=== PATIENT | male | born 1975 | race Caucasian/White ===

== ENCOUNTER 2024-09-29 14:28 | Emergency (ER) | payer BC, OTHER, SELFPAY ==
--- NOTE | ~2024-09-29 | XR_ITS ---
EXAMINATION: XR chest 2V 09/29/2024 14:56 INDICATION: Cough PROCEDURE: 2 view chest COMPARISON: No prior studies for comparison. FINDINGS: The lungs are clear. The cardiomediastinal silhouette is within normal limits. There are no pleural effusions. There is no pneumothorax suspected. IMPRESSION: 1: NO ACUTE CARDIOPULMONARY DISEASE. Reviewed, dictated and finalized at location A.
--- NOTE | 2024-09-29 14:31 | ED_ITS ---
HPI - URI/Sore Throat General Chief Complaint: Unspecified Stated Complaint: cough Time Seen by Provider: 09/29/24 14:31 Source: patient Mode of arrival: ambulatory Limitations: no limitations History of Present Illness HPI Narrative: Khurram is a 49-year-old male patient presenting to the clinic today with complaints cough x2 weeks. He reports he has a history of acid reflux and had a exacerbation of his acid reflux couple weeks ago. After the exacerbation of his reflux he developed a cough. States he has coughed up some bright red blood at time-last time was on Sunday of last week. Has been having to sit upright and sleep upright at nighttime to help alleviate his symptoms. Denies any shortness of breath or chest pain. Denies any abdominal pain at this time. Has contacted his GI specialist and they are going to be scheduling him a EGD. History of Calles's esophagus. GI specialist recommend going and getting a chest x-ray completed. Denies any runny nose or sore throat. Denies any blood in stool or any coffee-ground emesis. Denies any fevers, chills, body aches, fatigue, or recent weight loss. Related Data Home Medications ?Medication ?Instructions ?Recorded ?Confirmed ?Last Taken ?Type esomeprazole magnesium 20 mg 20 mg PO DAILY 09/29/24 09/29/24 Unknown History capsule,delayed release ([employer] (esomeprazole)) Allergies Allergy/AdvReac Type Severity Reaction Status Date / Time ZEGRID Allergy Mild Uncoded 02/15/10 11:36 Review of Systems Review of Systems: Pertinent positives per HPI. Patient denies any fever, chills, rash, headache, visual changes, dizziness, runny nose, sore throat, shortness of breath, chest pain, palpitations, nausea, vomiting, diarrhea, constipation, abdominal pain, or any urinary issues. PMFSH Comments At the time of my signature, I reviewed and agree with the nursing past medical, surgical, social, and family history. There is no relevant family history perti nent to the patient complaint. Exam Narrative: General: Well-developed, well nourished, in no apparent distress Head: Normocephalic, atraumatic Eyes: Pupils equally round and reactive to light bilaterally, EOM intact, sclera and conjunctive clear, no discharge, lids normal Ears: TMs intact and clear, ear canals clear, no drainage, grossly hearing normal. Nose: Nares patent, no discharge, no inflammation, no sinus tenderness. Mouth: Oropharynx without lesions or masses, good dentition, MMM. Neck: Supple, trachea midline, no enlargement of anterior or posterior cervical nodes, no thyroid masses or goiter palpable. Cardio: Regular rate and rhythm, s1 and s2 normal, no murmur appreciated. Resp: Clear to auscultation bilaterally anteriorly and posteriorly, no rhonchi, rales, wheezing or rubs Abdomen: Soft, pliable, bowel sounds present in all quadrants, non-tender to palpation, no organomegly, no CVAT tenderness. Course Course Emergency Course: Portions of this record may have been created with voice recognition software. Level of Care: Express Care Visit Vital Signs Vital signs: Vital Signs Temperature 36.9 C 09/29/24 14:42 Pulse Rate 73 09/29/24 14:42 Respiratory Rate 18 09/29/24 14:42 Blood Pressure 151/79 H 09/29/24 14:42 Pulse Oximetry 98 09/29/24 14:42 Oxygen Delivery Room Air 09/29/24 14:42 Temperature 36.9 C 09/29/24 14:42 Pulse Rate 73 09/29/24 14:42 Respiratory Rate 18 09/29/24 14:42 Blood Pressure 151/79 H 09/29/24 14:42 Pulse Oximetry 98 09/29/24 14:42 Oxygen Delivery Room Air 09/29/24 14:42 Vital signs reviewed MDM - URI/Sore Throat MDM Narrative Medical decision making narrative: At the time of visit patient is resting comfortably on the exam table. Patient appears to be nontoxic. Complaints cough x2 weeks. He reports he has a history of acid reflux and had a exacerbation of his acid reflux couple weeks ago. After the exacerbation of his reflux he developed a cough. States he has coughed up some bright red blood at time-last time was on Sunday of last week. Has been having to sit upright and sleep upright at nighttime to help alleviate his symptoms. Denies any shortness of breath or chest pain. Denies any abdominal pain at this time. Has contacted his GI specialist and they are going to be scheduling him a EGD. History of Calles's esophagus. GI specialist recommend going and getting a chest x-ray completed. Denies any runny nose or sore throat. Denies any blood in stool or any coffee-ground emesis. Denies any fevers, chills, body aches, fatigue, or recent weight loss. Chest x-ray ordered. Diagnostics: Chest x-rays negative for any acute cardiopulmonary process. Plan: I suspect patient has GERD with likely an esophagitis. Prescription for pantoprazole was sent to pharmacy. Will have patient hold taken his Nexium. Supportive measures were discussed with the patient and they voiced understandin g discharge instructions and agrees to treatment plan. Return precautions reviewed Differential Diagnosis Differential diagnosis: Likely upper respiratory infection, sinusitis, viral infection, bronchitis and other (Pneumonia, hiatal hernia, peptic ulcer disease, GERD) Imaging Data Radiologist's impression: ITS Impressions Chest X-Ray 09/29/24 14:58 IMPRESSION: 1: NO ACUTE CARDIOPULMONARY DISEASE. Discharge Plan Discharge Clinical Impression: Cough Qualifiers: Cough type: acute Qualified Code(s): R05.1 - Acute cough Gastro-esophageal reflux Qualifiers: Esophagitis presence: esophagitis presence not specified Qualified Code(s): K21.9 - Gastro-esophageal reflux disease without esophagitis Patient Disposition: Home Condition: Stable Instructions: Antibiotic Form, Diet for Stomach Ulcers and Gastritis (ED), GERD (Gastroesophageal Reflux Disease) (ED), Acute Cough (ED) Additional Instructions: Chest x-rays negative for any acute cardiopulmonary process Hold Nexium and try pantoprazole Increase fluids and stay well hydrated Avoid eating spicy or fatty foods, chocolate, or drinking caffeine. Avoid foods that cause you to feel bloated. Stop smoking Lose weight/exercise Stay upright for at least 30 minutes after eating. May use tums for immediate relief Take medications only as prescribed. Follow up with your PCP in 3-5 days if symptoms persist. Patient Language: Japanese Prescriptions: New pantoprazole 40 mg tablet,delayed release (DR/EC) 40 mg PO HS 28 Days Qty: 28 0RF No Action esomeprazole magnesium [[employer]ager (esomeprazole)] 20 mg capsule,delayed release(DR/EC) 20 mg PO DAILY Follow-up/Referrals: UNKNOWN,DOCTOR [Non-Staff] - Time of Disposition: 15:10 Quality [facility] Nursing Documentation ED [facility] nursing documentation: reviewed/agree
[2024-09-29 14:42] VITALS: BP 151/79; PULSE 73; RESP 18; TEMP 36.9; O2SAT 98
== END 2024-09-29 15:14 | disposition home or self-care (01) ==
PROVIDERS: Emergency Provider Nurse Practitioner Family; PCP Family Medicine
DX: R05.1 Acute cough (principal); K21.9 Gastro-esophageal reflux disease without esophagitis; K22.70 Barrett's esophagus without dysplasia
CPT/HCPCS: 71046; 99203; G0463